=== PATIENT | male | born 1945 ===

== ENCOUNTER 2017-09-22 17:53 | Inpatient (IN) | payer MEDICARE, OTHER ==
[2017-09-22 17:54] VITALS: BMI 27.7
--- NOTE | 2017-09-22 18:31 | ED PDOC ---
Arrival/HPI - General Chief Complaint: Medical Clearance Time Seen by Provider: 09/22/17 17:59 Historian: Patient - History of Present Illness Narrative History of Present Illness (Text): 09/22/17 18:06 A 72 year old male, whose past medical history includes hypertension, CAD, CABG , CVA with left hemiparisis, presents to the emergency department via EMS after being sent in by PMD for multiple falls, left sided back, hip, and lower quadrant pain. The patient also notes that he has not had a bowel movement in 2 weeks and has a new urinary incontinence onset. The patient reports he has had 5 falls, including 2 falls within the last 10-12 days. He denies loss of consciousness, headaches, dizziness, fever, or any other complaints at this time. The patient admits to living alone and uses a cane when walking. PMD: Dr. Ramos Neuro: Dr. Agrawal GI: Dr. Collins Time/Duration: > week (10-12 days) Symptom Course: Unchanged Activities at Onset: Rest, Light Context: Home Past Medical History - Provider Review Nursing Documentation Reviewed: Yes - Tetanus Immunization Tetanus Immunization: Unknown - Cardiac Hx Cardiac Disorders: Yes Hx Hypertension: Yes - Pulmonary Hx Respiratory Disorders: Yes Other/Comment: H/O OF SMOKING CIGARETTES - Neurological HX Cerebrovascular Accident: Yes - HEENT Hx HEENT Disorder: Yes (pt uses reading glass) Hx Glaucoma: Yes - Integumentary Other/Comment: POST FALL SKIN ABRASION TO RIGHT UPPER INNER LATERAL .01-11-16 - Musculoskeletal/Rheumatological Hx Musculoskeletal Disorders: Yes (LUMBAR RADICULOPATHY) Hx Falls: Yes (RECENT 01-11-16) Hx Unsteady Gait: Yes (CANE) - Gastrointestinal Hx Gastroesophageal Reflux: Yes - Genitourinary/Gynecological Hx Genitourinary Disorders: Yes Hx Incontinence: Yes - Psychiatric Hx Psychophysiologic Disorder: Yes Hx Anxiety: Yes Hx Depression: Yes Hx Emotional Abuse: No Hx Physical Abuse: No Hx Substance Use: No Other/Comment: INSOMNIA - Surgical History Hx Appendectomy: Yes Hx Open Heart Surgery: Yes Other/Comment: OPN HEART SURGERY,HERNIA REPAIR X 2 - Anesthesia Hx Anesthesia: Yes Hx Anesthesia Reactions: No Hx Malignant Hyperthermia: No - Suicidal Assessment Feels Threatened In Home Enviroment: No Family/Social History - Physician Review Nursing Documentation Reviewed: Yes Family/Social History: No Known Family HX Smoking Status: Former Smoker Hx Alcohol Use: No Hx Substance Use: No Hx Substance Use Treatment: No Allergies/Home Meds Allergies/Adverse Reactions: Allergies No Known Allergies Allergy (Verified 01/16/16 21:02) Home Medications: Home Meds Medication Instructions Recorded Confirmed Polyethylene Glycol 3350 [Miralax] 17 gm PO HS 01/16/16 09/22/17 Review of Systems - Physician Review All systems were reviewed & negative as marked: Yes - Review of Systems Constitutional: absent: Fevers Respiratory: absent: SOB Gastrointestinal: Abdominal Pain (left lower quadrant ), Constipation (2 weeks) Genitourinary Male: Urinary Output Changes. absent: Dysuria Musculoskeletal: Back Pain (left lower back pain ), Other (left hip pain ) Neurological: Gait Changes. absent: Headache, Dizziness Physical Exam Vital Signs Reviewed: Yes Vital Signs Temp Pulse Resp BP Pulse Ox 09/22/17 18:09 97.7 F 81 18 121/60 82 L Temperature: Afebrile Blood Pressure: Normal Pulse: Regular Respiratory Rate: Normal Appearance: Positive for: Non-Toxic Pain Distress: None Mental Status: Positive for: Alert and Oriented X 3 - Systems Exam Head: Present: Atraumatic, Normocephalic Pupils: Present: PERRL Extroacular Muscles: Present: EOMI Conjunctiva: Present: Normal Mouth: Present: Moist Mucous Membranes Pharnyx: Present: Normal. No: ERYTHEMA, EXUDATE Neck: Present: Normal Range of Motion Respiratory/Chest: Present: Clear to Auscultation, Good Air Exchange. No: Respiratory Distress, Accessory Muscle Use Cardiovascular: Present: Regular Rate and Rhythm, Normal S1, S2. No: Murmurs Abdomen: Present: Normal Bowel Sounds. No: Tenderness, Distention, Peritoneal Signs Back: Present: CVA Tenderness (tender to palpation on left cva area) Upper Extremity: Present: Normal Inspection. No: Cyanosis, Edema Lower Extremity: Present: Tenderness (tenderness to the left lateral aspect of the hip ) Neurological: Present: GCS=15, CN II-XII Intact, Other (left hemiparesis). No: Speech Normal (slurred speech at baseline ), Motor Func Grossly Intact Skin: Present: Warm, Dry, Normal Color. No: Rashes Psychiatric: Present: Alert, Oriented x 3 Medical Decision Making ED Course and Treatment: 09/22/17 18:33 Impression: A 72 year old male with left lower back pain, hip pain, and left lower quadrant pain. Differential Diagnosis included but are not limited to: constipation vs. pyelonephritis vs. renal stone vs diverticulitis Plan: -- EKG -- Chest x-ray -- Abd & Pelvis CT -- Brain CT -- Labs -- Urinary straight catheter -- Radiology: Left hip -- Urinalysis -- Reassess and disposition Progress Notes: 09/22/17 21:29 Patient with noted history; labs showing anemia and urinary tract infection. Patient will need ivf and iv antibiotics. CT a/p showing constipation. Will give magnesium citrate and lactulose. Given multiple falls and h/o cva, the patient will need neuro eval. CT brain with no acute findings. INR is supratherapeutic. Coumadin will be held. Patient will need rehab or potential NH placement. Case discussed with Dr. Orlando Ramos for admission to his service. - Lab Interpretations Lab Results: 09/22/17 18:38 09/22/17 18:38 Lab Results 09/22/17 19:00: Urine Color Yellow, Urine Appearance Clear, Urine pH 6.0, Ur Specific [place] 1.020, Urine Protein Negative, Urine Glucose (UA) Negative, Urine Ketones Negative, Urine Blood Trace-intact H, Urine Nitrate Negative, Urine Bilirubin Negative, Urine Urobilinogen 4.0 H, Ur Leukocyte Esterase Moderate H, Urine RBC 2 - 5, Urine WBC 15 - 20, Ur Epithelial Cells 0 - 2, Amorphous Sediment Small, Urine Bacteria Many, Urine Other Uyeast 09/22/17 18:38: Sodium 138, Potassium 4.3, Chloride 104, Carbon Dioxide 26, Anion Gap 12, BUN 14, Creatinine 1.0, Est GFR ( Amer) > 60, Est GFR (Non- Af Amer) > 60, Random Glucose 121 H, Calcium 8.9, Magnesium 2.0, Total Bilirubin 0.8, AST 22, ALT 27, Alkaline Phosphatase 173 H, Lactate Dehydrogenase 512, Total Creatine Kinase 53, Troponin I < 0.01, NT-Pro-B Natriuret Pep 258, Total Protein 7.8, Albumin 3.4, Globulin 4.4, Albumin/ Globulin Ratio 0.8 L, Lipase 34 09/22/17 18:38: PT 63.6 H, INR 5.63 H*, APTT 54.5 H 09/22/17 18:38: WBC 5.1 D, RBC 3.95, Hgb 8.5 L, Hct 28.2 L, MCV 71.4 L, MCH 21.5 L, MCHC 30.1 L, RDW 21.8 H, Plt Count 194, MPV 9.0, Gran % 62.1, Lymph % ( Auto) 26.4, Lyman % (Auto) 7.7 H, Eos % (Auto) 3.4, Baso % (Auto) 0.4, Gran # 3.15, Lymph # 1.3, Lyman # 0.4, Eos # 0.2, Baso # 0.02 - RAD Interpretation Narrative RAD Interpretations (Text): 09/22/17 21:39 CXR: nad as read by me. Radiology Orders: 09/22/17 18:17 ABD & PELVIS W/O PO OR IV CONT [CT] Stat 09/22/17 18:18 Brain [HEAD W/O CONTRAST] [CT] Stat 09/22/17 18:24 CHEST TWO VIEWS (PA/LAT) [RAD] Stat 09/22/17 18:25 HIP MIN 2V W/ PELVIS LT [RAD] Stat - EKG Interpretation EKG Interpretation (Text): 09/22/17 21:39 NSR @ 81 with incomplete RBBB; QRS is 104 and OR is 208; other intervals are normal; left axis deviation with poor R wave progression. Interpreted by ED Physician: Yes Type: 12 lead EKG Comparison: Similar to previous EKG (01/11/16) - Medication Orders Current Medication Orders: Cefepime HCl (Maxipime 2gm) 2 gm in 100 mls @ 100 mls/hr IVPB STAT STA PRN Reason: Protocol Stop: 09/22/17 22:12 Sodium Chloride (Sodium Chloride 0.9%) 1,000 mls @ 100 mls/hr IV .Q10H STA Stop: 09/23/17 07:24 Lactulose (Enulose) 10 gm PO STAT STA Stop: 09/22/17 21:27 Magnesium Citrate (Citrate Of Mag) 150 ml PO ONCE STA Stop: 09/22/17 21:27 - Scribe Statement The provider has reviewed the documentation as recorded by the Peteribelham Lopez Provider Scribe Attestation: All medical record entries made by the Scribe were at my direction and personally dictated by me. I have reviewed the chart and agree that the record accurately reflects my personal performance of the history, physical exam, medical decision making, and the department course for this patient. I have also personally directed, reviewed, and agree with the discharge instructions and disposition. Disposition/Present on Arrival - Present on Arrival Any Indicators Present on Arrival: No History of DVT/PE: No History of Uncontrolled Diabetes: No Urinary Catheter: No History of Decub. Ulcer: No History Surgical Site Infection Following: None - Disposition Have Diagnosis and Disposition been Completed?: Yes Diagnosis: Multiple falls, Urinary tract infection, Constipation Disposition: HOSPITALIZED Disposition Time: 21:00 Patient Plan: Admission Condition: FAIR Referrals: Kiko Ramos MD [Primary Care Provider] - Follow up with primary Forms: Kozio (Belarusian)
[2017-09-22 19:04] LABS: BASO # 0.02 K/mm3 (0.0-2.0); BASO % 0.4 % (0.0-3.0); EOS # 0.2 (0.0-0.7); EOS % 3.4 % (1.5-5.0); GRAN # 3.15 (1.4-6.5); GRAN % 62.1 % (50.0-68.0); HEMATOCRIT 28.2 % (42.0-52.0); LYMPH # 1.3 (1.2-3.4); LYMPH % 26.4 % (22.0-35.0); MEAN CELL VOLUME 71.4 fl (80.0-105.0); MEAN CORPUSCULAR HEMOGLOBIN 21.5 pg (25.0-35.0); MEAN CORPUSCULAR HGB CONC 30.1 g/dl (31.0-37.0); MONO # 0.4 (0.1-0.6); MONO % 7.7 % (1.0-6.0); RED CELL DISTRIBUTION WIDTH 21.8 % (11.5-14.5); WHITE BLOOD COUNT 5.1 10^3/ul (4.5-11.0)
[2017-09-22 19:15] LABS: URINE BILIRUBIN NEGATIVE (NEGATIVE); URINE BLOOD TRACE-INTACT (NEGATIVE); URINE GLUCOSE (UA) NEGATIVE (NEGATIVE); URINE KETONE NEGATIVE (NEGATIVE); URINE LEUKOCYTE ESTERASE MODERATE Leu/uL (NEGATIVE); URINE PROTEIN NEGATIVE mg/dL (<30 mg/dL)
[2017-09-22 19:16] LABS: ALB/GLOB RATIO 0.8 (1.1-1.8); ALKALINE PHOSPHATASE 173 U/L (38-126); ALT/SGPT 27 U/L (7-56); AST/SGOT 22 U/L (17-59); BILIRUBIN,TOTAL 0.8 mg/dL (0.2-1.3); BLOOD UREA NITROGEN 14 mg/dL (7-21); CALCIUM 8.9 mg/dL (8.4-10.5); CARBON DIOXIDE 26 mmol/L (21-33); CHLORIDE 104 mmol/L (98-107); GFR AFRICAN-AMERICAN > 60; GLUCOSE,RANDOM 121 mg/dL (70-110); LIPASE 34 U/L (23-300); POTASSIUM 4.3 mmol/L (3.6-5.0); SODIUM 138 mmol/L (132-148); TOTAL PROTEIN 7.8 g/dL (5.8-8.3)
[2017-09-22 19:26] LABS: TROPONIN I < 0.01 ng/mL
[2017-09-22 19:27] LABS: URINE COLOR YELLOW (YELLOW)
[2017-09-22 19:28] LABS: URINE APPEARANCE CLEAR (CLEAR)
[2017-09-22 19:29] LABS: URINE AMORPHOUS SEDIMENT SMALL; URINE BACTERIA MANY (NEG); URINE EPITHELIAL CELLS 0 - 2 /hpf (0-5); URINE WBC 15 - 20 /hpf (0-6)
[2017-09-22 19:41] LABS: INR 5.63 (0.93-1.08); PARTIAL THROMBOPLASTIN TIME 54.5 Seconds (25.1-36.5)
--- NOTE | 2017-09-22 19:43 | CARD ---
APPROVED REPORT EKG Measurement Heart [id number] <Conclusion> Normal sinus rhythm Left axis deviation Incomplete right bundle branch block Anterolateral infarct, age undetermined Abnormal ECG
--- NOTE | 2017-09-22 20:39 | CT ---
EXAM: CT Head Without Intravenous Contrast CLINICAL HISTORY: 72 years old, male; Pain; Headache; Headache not specified; Additional info: H/o CVA; Multiple falls; On coumadin TECHNIQUE: Axial computed tomography images of the head/brain without intravenous contrast. All CT scans at this facility use one or more dose reduction techniques, viz.: automated exposure control; ma/kV adjustment per patient size (including targeted exams where dose is matched to indication; i.e. head); or iterative reconstruction technique. COMPARISON: CT - HEAD W/O CONTRAST 2016-01-11 11:13 FINDINGS: Brain: No acute intracranial hemorrhage. Decreased attenuation is identified within the right temporo-occipital lobe, as well as within the left posterior frontal white matter, consistent with prior cerebral infarctions. These are unchanged. Otherwise, age-appropriate periventricular white matter disease. No edema. Ventricles: Extra vacuo dilatation of the posterior horn of the right lateral ventricle. Otherwise, age-appropriate ventriculomegaly. Bones: No acute displaced fracture. Sinuses: Unremarkable as visualized. No acute sinusitis. Mastoid air cells: Unremarkable as visualized. No mastoid effusion. IMPRESSION: Stable CT examination of the head, without acute intracranial hemorrhage, or suspicious mass effect.
--- NOTE | 2017-09-22 20:51 | CT ---
EXAM: CT Abdomen and Pelvis Without Intravenous Contrast CLINICAL HISTORY: 72 years old, male; Pain; Abdominal pain; Acute; Additional info: L flank pain TECHNIQUE: Axial computed tomography images of the abdomen and pelvis without intravenous contrast. All CT scans at this facility use one or more dose reduction techniques, viz.: automated exposure control; ma/kV adjustment per patient size (including targeted exams where dose is matched to indication; i.e. head); or iterative reconstruction technique. COMPARISON: CT - ABD PELVIS W/O PO OR IV CONT 2016-01-11 11:16 FINDINGS: Lower thorax: Small bilateral pleural effusions, with adjacent compressive atelectasis. Persistent cardiomegaly. Small hiatal hernia. ABDOMEN: Liver: Fatty infiltration of the liver. Gallbladder and bile ducts: Multiple stones within the gallbladder, which is otherwise unremarkable. No intra-extrahepatic biliary ductal dilation. Pancreas: Limited evaluation secondary to the lack of intravenous contrast. Spleen: No acute findings. Adrenals: No acute findings. Kidneys and ureters: No obstructing stones. No hydronephrosis. PELVIS: Bladder: No acute findings. Reproductive: No acute findings. Appendix: The appendix is not definitively visualized, however no pericecal inflammatory change is identified to suggest the presence of acute appendicitis. ABDOMEN and PELVIS: Stomach and bowel: Aerated stool within the rectum, extending to the level of the descending colon with mural rectal thickening. Peritoneum: No acute findings. Lymph nodes: Limited evaluation without intravenous contrast. Vasculature: No aortic aneurysm. Calcified atherosclerotic disease. Bones: No acute fracture. IMPRESSION: No obstructive uropathy. Small bilateral pleural effusions with adjacent compressive atelectasis. Cholelithiasis. Findings suggesting fecal impaction with resulting constipation, as detailed above.
[2017-09-22] MEDS ORDERED: Cefepime IV 2 gm in NS 2 GM/100 ML BAG IVPB STA (21:13)
[2017-09-22] MEDS ORDERED: Sodium Chloride 0.9% 1,000 ML IV STA (21:25)
[2017-09-22] MEDS ORDERED: Magnesium Citrate Oral SOL (300 ml) PO STA (21:26)
--- NOTE | 2017-09-23 09:57 | RAD ---
PROCEDURE: HISTORY: L hip pain COMPARISON: None TECHNIQUE: AP view of the pelvis and applicable frog leg views obtained. Size FINDINGS: Generalized osteopenia. Inferior L4-5 and L5-S1 facet hypertrophic arthrosis. Bilateral superolateral hip joint space narrowing with mild superolateral acetabular spurring. Minimal inferomedial bilateral acetabular femoral spurring. Loss of the normal concavity to the left superior femoral head neck junction here with tiny left-sided cortical "Bump" here. Findings can be seen with femoral acetabular impingement in addition to inferred concomitant background osteoarthrosis IMPRESSION: No fracture or dislocation. Osteoarthrosis. Possible femoral acetabular impingement
--- NOTE | 2017-09-23 09:58 | RAD ---
HISTORY: abd pain, dizzy COMPARISON: 01/11/2016 TECHNIQUE: Chest PA and lateral FINDINGS: LUNGS: Trace discoid atelectasis and scarring left lateral lung base probably presents previously - currently more conspicuous. No interval consolidation. PLEURA: No significant pleural effusion identified. No pneumothorax apparent. CARDIOVASCULAR: Mild cardiomegaly. Midline sternotomy and coronary artery bypass surgery. OSSEOUS STRUCTURES: Left shoulder arthrosis O persists right shoulder not have visualized. VISUALIZED UPPER ABDOMEN: Normal. OTHER FINDINGS: None. IMPRESSION: No interval pathology.
[2017-09-23] MEDS: Cefepime 1gm in NS 100ml 1 GM/100 ML BAG IVPB SCH ×2 (10:17→21:37)
--- NOTE | 2017-09-23 10:45 | HP ---
CHIEF COMPLAINT: Generalized weakness. HISTORY OF PRESENT ILLNESS: This is a 72-year-old man I have known for many years who presented to the office with his branch credit counselor. He reported 5 falls at home and reports over the past few days has generalized weakness and no bowel movement in reported 2 weeks'. He is on Coumadin because of his CVAs, and his fingerstick INR was markedly elevated at 5.5 making him suspicious of infection. I tried my best to convince the patient to be admitted. He wanted to come tomorrow afternoon instead. But upon leaving the office it was obvious to all of us how weak he was, unable to walk down the bah and so my last patient of the day added on because of what was thought to be relatively simple complaint turned out to require the ambulance to come to the office and bring him to the emergency room. In the ER, he was evaluated, found to be clinically dry with rather severe urinary tract infection and admitted. PAST MEDICAL HISTORY: Significant for hypertension and coronary artery disease, atherosclerotic cerebrovascular disease and prior strokes. Past history is negative for diabetes, cholesterol, tuberculosis, asthma, seizures, gout, emphysema, or cancer. PAST SURGICAL HISTORY: He had coronary artery bypass graft in 1994, cardiac cath and stent placement in 2007. He had a recurrent hernia repair in the right inguinal area in 1991, appendectomy in 1989. He had multiple strokes in the past. When I first met him several years ago, he reported that he had had 7 strokes in the past in the right occipital and left posterior frontal area. His most recent CVA was earlier last year of December 2015. His only other hospitalizations at the time I have known him was in 2014 for headache and 2011 because of abdominal pain and splenic infarct. There is question of AFib in the past, although this is uncertain, however, with the multiple strokes and splenic infarct, we are most suspicious of this and therefore he continues on Coumadin. ALLERGIES: HE HAS NO KNOWN ALLERGIES. SOCIAL HISTORY: Does not smoke, but has positive history, does not drink alcohol. Drinks 1 cup of coffee a day. He had a colonoscopy and endoscopy in April 2011. He last say an eye doctor in [place], [place]. He had a stress test in 2010 [address] Zamora and Fede. He gets the flu shot yearly. His last Pneumovax vaccine was in 2010. He is the oldest of four siblings, and he is with 5 children. His internal medicine hospitalist is Dr. Mistry. His certified optician is Dr. King. His neurologist is Dr. Agrawal. PHYSICAL EXAMINATION GENERAL: Patient is somewhat disheveled, lethargic, sick appearing, but not in pain or distress. VITAL SIGNS: Blood pressure in the office was 110/60. HEENT: Head and neck showed temporalis wasting, unshaven. Mucous membranes were bit dry. NECK: Supple without masses. No JVD. No bruits. Normal carotid upstroke. HEART: Regular, not tachycardic. ABDOMEN: Thin and soft. Abdomen was nontender. CHEST: Chest wall was nontender. EXTREMITIES: Thin with no edema. LABORATORY DATA: In the emergency room, white count was normal. H and H was low at 8.5 and 28. Chemistries were unremarkable. Nonfasting glucose was 121. Urine showed white cells, blood, and many bacteria. Culture was sent. IMPRESSION: 1. Lethargy. 2. Altered mental status. 3. History of cerebrovascular accident. 4. Urinary tract infection. 5. Clinically dry/dehydration with elevated urine specific gravity. 6. Atherosclerotic cerebrovascular disease with multiple cerebrovascular accidents in the past. 7. History of splenic infarct. 8. Questionable history of atrial fibrillation in the past. 9. Hypertension. 10. Coronary artery disease. 11. Long history of left chest and abdomen post stroke neuralgia pain. 12. Acute and chronic severe constipation. PLAN: Admit to med-surg floor, IV fluids, IV antibiotics, infectious disease consultation, neurology consultation, GI consultation. We will follow closely. Kiko Ramos MD MTDChucho
--- NOTE | 2017-09-23 11:07 | CP.PCM.CON ---
History of Present Illness - History of Present Illness History of Present Illness: 72 year old male with PMH of CAD S/P CABG, CVA with left sided hemiparesis, HTN , lumbar radiculopathy, GERD, S/P hernia repair was brought in to [facility] because of multiple falls that have been happening over a few months, and a couple of falls in the past 2 weeks. He is also complaining of constipation and has not moved his bowels in the past 2 weeks, as well as having urinary incontinence. He has no fever or chills, no headache or dizziness , no chest pain, no SOB, no cough or colds, no abdominal pain. Urinalysis is showing some pyuria and Infectious diseases consult is requested to further evaluate and manage. Review of Systems - Review of Systems All systems: reviewed and no additional remarkable complaints except (as per HPI ) Past Patient History - Tetanus Immunizations Tetanus Immunization: Unknown - Past Medical History & Family History Past Medical History?: Yes - Past Social History Smoking Status: Former Smoker - CARDIAC Hx Cardiac Disorders: Yes Hx Hypertension: Yes - PULMONARY Hx Respiratory Disorders: Yes Other/Comment: H/O OF SMOKING CIGARETTES - NEUROLOGICAL HX Cerebrovascular Accident: Yes - HEENT Hx HEENT Problems: Yes (pt uses reading glass) Hx Glaucoma: Yes - INTEGUMENTARY Other/Comment: POST FALL SKIN ABRASION TO RIGHT UPPER INNER LATERAL .01-11-16 - MUSCULOSKELETAL/RHEUMATOLOGICAL Hx Musculoskeletal Disorders: Yes (LUMBAR RADICULOPATHY) Hx Falls: Yes (RECENT 01-11-16) Hx Unsteady Gait: Yes (CANE) - GASTROINTESTINAL Hx Gastroesophageal Reflux: Yes - GENITOURINARY/GYNECOLOGICAL Hx Genitourinary Disorders: Yes Hx Incontinence: Yes - PSYCHIATRIC Hx Psychophysiologic Disorder: Yes Hx Anxiety: Yes Hx Depression: Yes Hx Emotional Abuse: No Hx Physical Abuse: No Hx Substance Use: No Other/Comment: INSOMNIA - SURGICAL HISTORY Hx Appendectomy: Yes Hx Open Heart Surgery: Yes Other/Comment: OPN HEART SURGERY,HERNIA REPAIR X 2 - ANESTHESIA Hx Anesthesia: Yes Hx Anesthesia Reactions: No Hx Malignant Hyperthermia: No Meds Allergies/Adverse Reactions: Allergies Allergy/AdvReac Type Severity Reaction Status Date / Time No Known Allergies Allergy Verified 01/16/16 21:02 - Medications Medications: Current Medications Sodium Chloride (Sodium Chloride 0.9%) 1,000 mls @ 100 mls/hr IV .Q10H STA Stop: 09/23/17 07:24 Last Admin: 09/22/17 21:42 Dose: 100 mls/hr Physical Exam - Constitutional Appears: Non-toxic, Chronically Ill - Head Exam Head Exam: NORMAL INSPECTION - Respiratory Exam Respiratory Exam: Decreased Breath Sounds - Cardiovascular Exam Cardiovascular Exam: +S1, +S2 - GI/Abdominal Exam GI & Abdominal Exam: Soft. absent: Tenderness Results - Vital Signs Recent Vital Signs: Last Vital Signs Temp 99.4 F 09/22/17 22:05 Pulse 84 09/22/17 22:05 Resp 18 09/22/17 22:05 BP 107/55 L 09/22/17 22:05 Pulse Ox 95 09/22/17 22:05 - Labs Result Diagrams: 09/22/17 18:38 09/22/17 18:38 Assessment & Plan - Assessment and Plan (Free Text) Plan: Assessment R/O urinary tract infection in this patient with urinary incontinence CAD S/P CABG CVA with left sided hemiparesis HTN lumbar radiculopathy GERD S/P hernia repair Plan Started patient on Cefepime pending blood, urine cx awaiting Neuro evaluation regarding multiple falls and urinary incontinence will monitor clinically
--- NOTE | 2017-09-23 12:19 | CP.PCM.CON ---
<Estephania Smith - Last Filed: 09/23/17 13:09> History of Present Illness - History of Present Illness History of Present Illness: Seen and examined at earlier this a.m., the chart was reviewed. Request for GI consult is for abdominal pain/constipation. HPI: This is a 72-year-old male with a past medical history atrial fibrillation on Coumadin, chronic constipation, coronary artery disease s/p CABG, CVA with left hemiparesis sent to the emergency by PMD for history of falls 2 within the past 2 week. The patient denies loss of consciousness, head injury, nausea , or vomiting. The patient reports not having a BM for 2 weeks, he did have abdominal pain to left upper quadrant which is chronic but also had discomfort in lower abdominal area. On admission he had a CT scan of abdomen and pelvis and was found to have severe constipation, cholelithiasis, bilateral pleural effusion. He received last night magnesium citrate and reported to have a large bowel movement earlier this morning. No reports of melena or bright red blood per rectum. The patient reports improvement of lower abdominal pain, endorses poor appetite. No dysphagia. His most recent EGD and colon were in April found to have colon polyp, diverticulosis, and redundant colon. On endoscopy he was found ot have mild gastritis. Past medical history: Atrial fibrillation on Coumadin, hypertension, CAD, CABG, CVA with left hemiparesis, colon polyps, chronic constipation, peptic ulcer disease, diverticulosis Surgical history: Appendectomy, hernia repair Family history: Noncontributory Allergies: No known drug allergies Social history: Former smoker, denies EtOH or drugs Medications: MAR reviewed, patient on Coumadin at home ROS: Systems reviewed with the positive findings, see HPI CT scan head, no acute findings, no infarct or hemorrhage HIP XRAY: no fracture reported. Past Patient History - Tetanus Immunizations Tetanus Immunization: Unknown - Past Medical History & Family History Past Medical History?: Yes - Past Social History Smoking Status: Former Smoker - CARDIAC Hx Cardiac Disorders: Yes Hx Hypertension: Yes - PULMONARY Hx Respiratory Disorders: Yes Other/Comment: H/O OF SMOKING CIGARETTES - NEUROLOGICAL HX Cerebrovascular Accident: Yes - HEENT Hx HEENT Problems: Yes (pt uses reading glass) Hx Glaucoma: Yes - INTEGUMENTARY Other/Comment: POST FALL SKIN ABRASION TO RIGHT UPPER INNER LATERAL .01-11-16 - MUSCULOSKELETAL/RHEUMATOLOGICAL Hx Musculoskeletal Disorders: Yes (LUMBAR RADICULOPATHY) Hx Falls: Yes (RECENT 01-11-16) Hx Unsteady Gait: Yes (CANE) - GASTROINTESTINAL Hx Gastroesophageal Reflux: Yes - GENITOURINARY/GYNECOLOGICAL Hx Genitourinary Disorders: Yes Hx Incontinence: Yes - PSYCHIATRIC Hx Psychophysiologic Disorder: Yes Hx Anxiety: Yes Hx Depression: Yes Hx Emotional Abuse: No Hx Physical Abuse: No Hx Substance Use: No Other/Comment: INSOMNIA - SURGICAL HISTORY Hx Appendectomy: Yes Hx Open Heart Surgery: Yes Other/Comment: OPN HEART SURGERY,HERNIA REPAIR X 2 - ANESTHESIA Hx Anesthesia: Yes Hx Anesthesia Reactions: No Hx Malignant Hyperthermia: No Meds Allergies/Adverse Reactions: Allergies Allergy/AdvReac Type Severity Reaction Status Date / Time No Known Allergies Allergy Verified 01/16/16 21:02 - Medications Medications: Current Medications Cefepime HCl (Maxipime 1gm) 1 gm in 100 mls @ 100 mls/hr IVPB Q12 [facility] PRN Reason: Protocol Last Admin: 09/23/17 10:17 Dose: 100 mls/hr Polyethylene Glycol (Miralax) 17 gm PO Q8H [facility] Stop: 09/24/17 06:01 Physical Exam - Constitutional Appears: No Acute Distress - Head Exam Head Exam: NORMOCEPHALIC - Eye Exam Eye Exam: Normal appearance. absent: Scleral icterus - ENT Exam ENT Exam: Mucous Membranes Moist - Neck Exam Neck exam: Positive for: Normal Inspection - Respiratory Exam Respiratory Exam: Decreased Breath Sounds, NORMAL BREATHING PATTERN. absent: Respiratory Distress - Cardiovascular Exam Cardiovascular Exam: +S1, +S2 - GI/Abdominal Exam GI & Abdominal Exam: Hyperactive Bowel Sounds, Soft, Tenderness (LUQ). absent: Distended, Guarding, Rebound - Extremities Exam Extremities exam: Positive for: pedal pulses present. Negative for: calf tenderness - Neurological Exam Neurological exam: Alert, Oriented x3 Additional comments: LEFT sided weakness - Skin Skin Exam: Dry, Warm Results - Vital Signs Recent Vital Signs: Last Vital Signs Temp 98.8 F 09/23/17 08:18 Pulse 79 09/23/17 08:18 Resp 18 09/23/17 08:18 BP 120/64 09/23/17 08:18 Pulse Ox 97 09/23/17 08:18 - Labs Result Diagrams: 09/22/17 18:38 09/22/17 18:38 Assessment & Plan - Assessment and Plan (Free Text) Assessment: Assessment: Status post fall Severe constipation, history of chronic UTI History of atrial fibrillation on Coumadin History of diverticulosis CAD History of CVA with left-sided weakness PLAN: give Miralax Q8H for three doses then will place on Miralax BID diet as tolerated on Iv antibiotics urine CS, pending result abdominal US, elevated alkaline phos, ?GB stone on ct scan neurology evaluation as per ID Thank you for this consult and for allowing us to participate in your patient care, further recommendation based on clinical course. Seen and discussed w/ Dr. King. <Trev King V - Last Filed: 09/23/17 22:21> Meds - Medications Medications: Current Medications Amitriptyline HCl (Elavil) 75 mg PO HS [facility] Last Admin: 09/23/17 21:41 Dose: 75 mg Aspirin (Aspirin Chewable) 81 mg PO DAILY [facility] Carvedilol (Coreg) 3.125 mg PO BID [facility] Last Admin: 09/23/17 17:21 Dose: 3.125 mg Gabapentin (Neurontin) 300 mg PO TID [facility] PRN Reason: Protocol Last Admin: 09/23/17 17:20 Dose: 300 mg Cefepime HCl (Maxipime 1gm) 1 gm in 100 mls @ 100 mls/hr IVPB Q12 [place] PRN Reason: Protocol Last Admin: 09/23/17 21:37 Dose: 100 mls/hr Lisinopril (Zestril) 2.5 mg PO DAILY [facility] Last Admin: 09/23/17 13:26 Dose: 2.5 mg Pantoprazole Sodium (Protonix Ec Tab) 20 mg PO 0600 [facility] Polyethylene Glycol (Miralax) 17 gm PO Q8H [facility] Stop: 09/24/17 06:01 Last Admin: 09/23/17 21:43 Dose: 17 gm Sertraline HCl (Zoloft) 50 mg PO DAILY [facility] Tamsulosin HCl (Flomax) 0.4 mg PO DAILY [facility] Last Admin: 09/23/17 13:26 Dose: 0.4 mg Results - Vital Signs Recent Vital Signs: Last Vital Signs Temp 97.2 F L 09/23/17 16:00 Pulse 80 09/23/17 16:00 Resp 20 09/23/17 16:00 BP 124/65 09/23/17 17:21 Pulse Ox 95 09/23/17 16:00 - Labs Result Diagrams: 09/23/17 12:50 09/23/17 12:50 Labs: Laboratory Results - last 24 hr 09/23/17 09/23/17 09/23/17 12:50 12:50 12:50 WBC 4.7 RBC 3.61 Hgb 7.8 L Hct 25.8 L MCV 71.5 L MCH 21.6 L MCHC 30.2 L RDW 21.7 H Plt Count 171 MPV 8.6 PT 49.6 H INR 4.38 H* Sodium 144 Potassium 3.9 Chloride 107 Carbon Dioxide 32 Anion Gap 9 L BUN 12 Creatinine 0.9 Est GFR ( Amer) > 60 Est GFR (Non-Af Amer) > 60 Random Glucose 94 Calcium 8.3 L Total Bilirubin 0.6 AST 32 ALT 39 Alkaline Phosphatase 154 H Total Protein 7.1 Albumin 3.1 Globulin 4.0 Albumin/Globulin Ratio 0.8 L Blood Type Antibody Screen Crossmatch BBK History Checked 09/23/17 20:12 WBC RBC Hgb Hct MCV MCH MCHC RDW Plt Count MPV PT INR Sodium Potassium Chloride Carbon Dioxide Anion Gap BUN Creatinine Est GFR ( Amer) Est GFR (Non-Af Amer) Random Glucose Calcium Total Bilirubin AST ALT Alkaline Phosphatase Total Protein Albumin Globulin Albumin/Globulin Ratio Blood Type A POSITIVE Antibody Screen Negative Crossmatch See Detail BBK History Checked No verified bt Attending/Attestation - Attestation I have personally seen and examined this patient.: Yes I have fully participated in the care of the patient.: Yes I have reviewed all pertinent clinical information: Yes Notes (Text): this is an addendum to the GI consultation report dictated by Estephania Smith APN. On examination patient had a tenderness elicited abdomen. Patient has a history of chronic abdominal discomfort on the left side. Previous endoscopy reports reviewed CT scan was reviewed Will start the patient on MiraLAX 3 times a day until he moves his bowels Coagulopathy. History of paroxysmal A. fib on Coumadin. History of status post CVA 09/23/17 22:20
--- NOTE | 2017-09-23 12:56 | CON ---
HISTORY OF PRESENT ILLNESS: This is a 72-year-old male with past medical history of coronary artery disease and stroke with left hemiparesis, hypertension and GERD, came to medical center with multiple falls at home over a month and also complaining of constipation and having urinary incontinence. Called to evaluate the patient. PAST MEDICAL HISTORY: Coronary artery disease, status post CABG; CVA with left hemiparesis and low back pain. REVIEW OF SYSTEMS: Ten-point review of systems was negative except left-sided weakness secondary to stroke. ALLERGIES: NO KNOWN DRUG ALLERGY. PHYSICAL EXAMINATION: VITAL SIGNS: Blood pressure 107/55. HEENT: Normocephalic, atraumatic. NECK: Supple. NEUROLOGIC: Awake, oriented to self, confused and follows simple commands. Cranial nerves II through XII were tested. Pupils reactive. EOM intact. Spontaneous movement of the right side noted. Left side, left hemiparesis from a previous stroke and also altered mental status and UTI. LABORATORY DATA: Workup in progress. Labs: WBC 5.1, hemoglobin of 8.5, hematocrit 28.2, platelet 194. Sodium 138, potassium 4.3, chloride 104, CO2 of 26, glucose 121, BUN 14, creatinine 1. PLAN: Workup in progress. Continue present management and we will order him for physical therapy. Jose Agrawal MD
[2017-09-23 13:10] LABS: HEMATOCRIT 25.8 % (42.0-52.0); MEAN CELL VOLUME 71.5 fl (80.0-105.0); MEAN CORPUSCULAR HEMOGLOBIN 21.6 pg (25.0-35.0); MEAN CORPUSCULAR HGB CONC 30.2 g/dl (31.0-37.0); MEAN PLATELET VOLUME 8.6 fl (7.0-11.0); RED CELL DISTRIBUTION WIDTH 21.7 % (11.5-14.5); WHITE BLOOD COUNT 4.7 10^3/ul (4.5-11.0)
[2017-09-23 13:21] LABS: BLOOD UREA NITROGEN 12 mg/dL (7-21)
[2017-09-23 13:22] LABS: ALB/GLOB RATIO 0.8 (1.1-1.8); ALKALINE PHOSPHATASE 154 U/L (38-126); ALT/SGPT 39 U/L (7-56); AST/SGOT 32 U/L (17-59); BILIRUBIN,TOTAL 0.6 mg/dL (0.2-1.3); CALCIUM 8.3 mg/dL (8.4-10.5); CARBON DIOXIDE 32 mmol/L (21-33); CHLORIDE 107 mmol/L (98-107); GFR AFRICAN-AMERICAN > 60; GLUCOSE,RANDOM 94 mg/dL (70-110); POTASSIUM 3.9 mmol/L (3.6-5.0); SODIUM 144 mmol/L (132-148); TOTAL PROTEIN 7.1 g/dL (5.8-8.3)
[2017-09-23] MEDS: POLYETHYLENE GLYCOL 3350 17 GM/Dose PACKET PO SCH ×2 (13:23→21:43)
[2017-09-23 13:29] LABS: INR 4.38 (0.93-1.08)
--- NOTE | 2017-09-23 20:15 | US ---
EXAM: US Abdomen Complete CLINICAL HISTORY: 72 years old, male; Abnormal findings; Abnormal lab test; Elevated liver enzymes; Additional info: Elevated lft TECHNIQUE: Real-time ultrasound of the abdomen (complete) with image documentation. COMPARISON: CT - ABD PELVIS W/O PO OR IV CONT 2017-09-22 19:46 FINDINGS: Liver: The liver is not enlarged measuring 14 cm in longitudinal dimension. Diffuse fatty infiltration is present. The portal vein is patent. No intrahepatic bile duct dilation. Gallbladder: Shadowing stones are identified within the gallbladder, which is otherwise unremarkable. No pericholecystic fluid or gallbladder wall thickening is detected. Common bile duct: No stones. No dilation, measuring 3.8 mm. Pancreas: Visualization of the pancreas is limited by overlying bowel gas. Right kidney: Unremarkable in echogenicity and size measuring 10.4 x 5.2 x 5.4 cm. No hydronephrosis. Left Kidney: Unremarkable in echogenicity and size measuring 11.7 x 4.8 x 5.9 cm. No hydronephrosis. Spleen: Unremarkable in echogenicity and increased in size measuring 13 cm in longitudinal dimension. Aorta: Unremarkable. Inferior vena cava: patent. IMPRESSION: Splenomegaly. Cholelithiasis, without sonographic evidence of cholecystitis. Fatty infiltration of the liver. Limited evaluation of the pancreas, secondary to overlying bowel gas. Otherwise, unremarkable sonographic evaluation of the abdomen, as detailed above.
[2017-09-24] MEDS: Pantoprazole 20 mg EC Tab PO SCH (05:18)
[2017-09-24] MEDS: POLYETHYLENE GLYCOL 3350 17 GM/Dose PACKET PO SCH ×2 (05:18→18:45)
[2017-09-24 06:25] LABS: HEMATOCRIT 29.5 % (42.0-52.0); MEAN CELL VOLUME 73.8 fl (80.0-105.0); MEAN CORPUSCULAR HEMOGLOBIN 23.5 pg (25.0-35.0); MEAN CORPUSCULAR HGB CONC 31.9 g/dl (31.0-37.0); MEAN PLATELET VOLUME 9.2 fl (7.0-11.0); RED CELL DISTRIBUTION WIDTH 21.6 % (11.5-14.5); WHITE BLOOD COUNT 4.2 10^3/ul (4.5-11.0)
[2017-09-24 06:39] LABS: INR 1.97 (0.93-1.08)
[2017-09-24 07:09] LABS: ALB/GLOB RATIO 0.8 (1.1-1.8); ALKALINE PHOSPHATASE 159 U/L (38-126); ALT/SGPT 42 U/L (7-56); AST/SGOT 31 U/L (17-59); BILIRUBIN,TOTAL 0.8 mg/dL (0.2-1.3); BLOOD UREA NITROGEN 10 mg/dL (7-21); CALCIUM 8.2 mg/dL (8.4-10.5); CARBON DIOXIDE 29 mmol/L (21-33); CHLORIDE 107 mmol/L (98-107); GFR AFRICAN-AMERICAN > 60; GLUCOSE,RANDOM 86 mg/dL (70-110); POTASSIUM 3.8 mmol/L (3.6-5.0); SODIUM 140 mmol/L (132-148); TOTAL PROTEIN 6.9 g/dL (5.8-8.3)
--- NOTE | 2017-09-24 09:07 | CP.PCM.PN ---
<Jaymie Lagunas - Last Filed: 09/24/17 12:25> Subjective - Date & Time of Evaluation Date of Evaluation: 09/24/17 Time of Evaluation: 09:05 - Subjective Subjective: PGY-2 Neurology progress note Patient seen and examined at bedside. No acute distress, he is sleeping comfortably. He does not have any complaints at this time. Objective - Vital Signs/Intake and Output Vital Signs (last 24 hours): Temp Pulse Resp BP Pulse Ox 98.8 F 68 18 128/70 97 09/24/17 08:05 09/24/17 08:05 09/24/17 08:05 09/24/17 08:05 09/24/17 08:05 Intake and Output: 09/24/17 09/24/17 06:59 18:59 Intake Total 1025 Output Total 2 Balance 1023 - Medications Medications: Current Medications Amitriptyline HCl (Elavil) 75 mg PO HS [facility] Last Admin: 09/23/17 21:41 Dose: 75 mg Aspirin (Aspirin Chewable) 81 mg PO DAILY [facility] Carvedilol (Coreg) 3.125 mg PO BID [facility] Last Admin: 09/23/17 17:21 Dose: 3.125 mg Gabapentin (Neurontin) 300 mg PO TID [facility] PRN Reason: Protocol Last Admin: 09/23/17 17:20 Dose: 300 mg Cefepime HCl (Maxipime 1gm) 1 gm in 100 mls @ 100 mls/hr IVPB Q12 [place] PRN Reason: Protocol Last Admin: 09/23/17 21:37 Dose: 100 mls/hr Lisinopril (Zestril) 2.5 mg PO DAILY [facility] Last Admin: 09/23/17 13:26 Dose: 2.5 mg Pantoprazole Sodium (Protonix Ec Tab) 20 mg PO 0600 [facility] Last Admin: 09/24/17 05:18 Dose: 20 mg Sertraline HCl (Zoloft) 50 mg PO DAILY [facility] Tamsulosin HCl (Flomax) 0.4 mg PO DAILY [facility] Last Admin: 09/23/17 13:26 Dose: 0.4 mg - Labs Labs: 09/24/17 05:20 09/24/17 05:20 PT 22.0 SECONDS (9.4-12.5) H 09/24/17 05:20 INR 1.97 (0.93-1.08) H 09/24/17 05:20 APTT 54.5 Seconds (25.1-36.5) H 09/22/17 18:38 - Constitutional Appears: No Acute Distress - Head Exam Head Exam: ATRAUMATIC, NORMAL INSPECTION, NORMOCEPHALIC - Eye Exam Eye Exam: EOMI, Normal appearance - Respiratory Exam Respiratory Exam: NORMAL BREATHING PATTERN. absent: Respiratory Distress - Neurological Exam Neurological Exam: Alert, Awake. absent: Oriented x3 Assessment and Plan - Assessment and Plan (Free Text) Assessment: 72 yo male with PMH of CAD s/p CABG, CVA with left hemiparesis, low back pain presented with frequent falls and urinary incontinence. 1. UTI 2. H/o CVA with left hemiparesis - CT head was unchanged - MRI of brain shows cystic encephalomalacia in right occipital lobe and right temporal lobe, frontal lobe and left basal ganglia, consistent with neurological deficiency - MRI of lumbar spine showed acute compression fracture of L1 - recommend neurosurgery evaluation - continue asa, plavix - PT/OT case reviewed and discussed with attending <Alfredo Agrawal - Last Filed: 09/24/17 16:13> Objective - Vital Signs/Intake and Output Vital Signs (last 24 hours): Temp Pulse Resp BP Pulse Ox 98.8 F 68 18 128/70 97 09/24/17 08:05 09/24/17 10:08 09/24/17 08:05 09/24/17 10:08 09/24/17 08:05 Intake and Output: 09/24/17 09/24/17 06:59 18:59 Intake Total 1025 Output Total 2 Balance 1023 - Medications Medications: Current Medications Amitriptyline HCl (Elavil) 75 mg PO HS [facility] Last Admin: 09/23/17 21:41 Dose: 75 mg Aspirin (Aspirin Chewable) 81 mg PO DAILY [facility] Last Admin: 09/24/17 10:07 Dose: 81 mg Carvedilol (Coreg) 3.125 mg PO BID [facility] Last Admin: 09/24/17 10:08 Dose: 3.125 mg Gabapentin (Neurontin) 300 mg PO TID [facility] PRN Reason: Protocol Last Admin: 09/24/17 16:00 Dose: 300 mg Cefepime HCl (Maxipime 1gm) 1 gm in 100 mls @ 100 mls/hr IVPB Q12 [facility] PRN Reason: Protocol Last Admin: 09/24/17 10:08 Dose: 100 mls/hr Lisinopril (Zestril) 2.5 mg PO DAILY [facility] Last Admin: 09/24/17 10:06 Dose: 2.5 mg Pantoprazole Sodium (Protonix Ec Tab) 20 mg PO 0600 [facility] Last Admin: 09/24/17 05:18 Dose: 20 mg Polyethylene Glycol (Miralax) 17 gm PO BID [facility] Sertraline HCl (Zoloft) 50 mg PO DAILY [facility] Last Admin: 09/24/17 10:07 Dose: 50 mg Tamsulosin HCl (Flomax) 0.4 mg PO DAILY [facility] Last Admin: 09/24/17 10:07 Dose: 0.4 mg - Labs Labs: 09/24/17 05:20 09/24/17 05:20 PT 22.0 SECONDS (9.4-12.5) H 09/24/17 05:20 INR 1.97 (0.93-1.08) H 09/24/17 05:20 APTT 54.5 Seconds (25.1-36.5) H 09/22/17 18:38 Attending/Attestation - Attestation I have personally seen and examined this patient.: Yes I have fully participated in the care of the patient.: Yes I have reviewed all pertinent clinical information, including history, physical exam and plan: Yes
[2017-09-24] MEDS: Cefepime 1gm in NS 100ml 1 GM/100 ML BAG IVPB SCH ×2 (10:08→21:17)
--- NOTE | 2017-09-24 10:17 | MRI ---
PROCEDURE: MRI BRAIN WITHOUT CONTRAST HISTORY: weakness COMPARISON: 01/13/2016 MRI TECHNIQUE: Multiplanar, multisequence MR images of the brain were obtained without intravenous contrast enhancement. FINDINGS: HEMORRHAGE: None DWI: No evidence of an acute or early subacute infarction. BRAIN PARENCHYMA: No mass effect or edema. There is cystic encephalomalacia in the right occipital lobe adjacent to the occipital and temporal horn of the right lateral ventricle. Encephalomalacia is also seen in the right temporal lobe and the left frontal lobe and left basal ganglia. There are no acute changes VENTRICLES: Unremarkable. No hydrocephalus. CRANIUM: Unremarkable. ORBITS: Grossly unremarkable. PARANASAL SINUSES/MASTOIDS: Clear VASCULAR SYSTEM: Skull base flow voids intact. OTHER FINDINGS: None. IMPRESSION: There is cystic encephalomalacia in the right occipital lobe adjacent to the occipital and temporal horn of the right lateral ventricle. Encephalomalacia is also seen in the right temporal lobe and the left frontal lobe and left basal ganglia. There are no acute changes
--- NOTE | 2017-09-24 10:28 | MRI ---
PROCEDURE: MR LUMBAR SPINE WITHOUT CONTRAST HISTORY: pain, falls, irinary incont COMPARISON: 11/05/2012 TECHNIQUE: Multiecho multiplanar sequences were performed through the lumbar spine without the use of intravenous contrast. FINDINGS: Normal lumbar lordosis. There is an acute compression fracture of the superior endplate of L1. There is a transverse fracture line that parallels the endplate. There is marrow edema indicating that the fractures acute or subacute Conus medullaris unremarkable at the level of L1 Paraspinal soft tissues are unremarkable. T12-L1: No disc herniation, spinal canal stenosis or neural foraminal narrowing. L1-2: No disc herniation, spinal canal stenosis or neural foraminal narrowing. L2-3: No disc herniation, spinal canal stenosis or neural foraminal narrowing. L3-4: There is a moderate size central disc herniation. This has slightly decreased in size. This indents the thecal sac. There is no evidence of direct nerve root compression L4-5: There is an asymmetric disc bulge extending to the left. There is no significant foraminal stenosis L5-S1: No disc herniation, spinal canal stenosis or neural foraminal narrowing. OTHER FINDINGS: None. IMPRESSION: There is an acute compression fracture of the superior endplate of L1. There is a transverse fracture line that parallels the endplate. There is marrow edema indicating that the fracture is acute or subacute
--- NOTE | 2017-09-24 12:15 | CP.PCM.PN ---
Subjective - Date & Time of Evaluation Date of Evaluation: 09/24/17 Time of Evaluation: 12:14 - Subjective Subjective: 72 y o male with mult med problems MRI Ll spine shows minimally compressed sup endplate FX L1 No intervention is required appropriate level of analgesics for any LBP Objective - Vital Signs/Intake and Output Vital Signs (last 24 hours): Temp Pulse Resp BP Pulse Ox 98.8 F 68 18 128/70 97 09/24/17 08:05 09/24/17 10:08 09/24/17 08:05 09/24/17 10:08 09/24/17 08:05 Intake and Output: 09/24/17 09/24/17 06:59 18:59 Intake Total 1025 Output Total 2 Balance 1023 - Medications Medications: Current Medications Amitriptyline HCl (Elavil) 75 mg PO HS [facility] Last Admin: 09/23/17 21:41 Dose: 75 mg Aspirin (Aspirin Chewable) 81 mg PO DAILY [facility] Last Admin: 09/24/17 10:07 Dose: 81 mg Carvedilol (Coreg) 3.125 mg PO BID [facility] Last Admin: 09/24/17 10:08 Dose: 3.125 mg Gabapentin (Neurontin) 300 mg PO TID [facility] PRN Reason: Protocol Last Admin: 09/24/17 10:07 Dose: 300 mg Cefepime HCl (Maxipime 1gm) 1 gm in 100 mls @ 100 mls/hr IVPB Q12 [facility] PRN Reason: Protocol Last Admin: 09/24/17 10:08 Dose: 100 mls/hr Lisinopril (Zestril) 2.5 mg PO DAILY [facility] Last Admin: 09/24/17 10:06 Dose: 2.5 mg Pantoprazole Sodium (Protonix Ec Tab) 20 mg PO 0600 [facility] Last Admin: 09/24/17 05:18 Dose: 20 mg Sertraline HCl (Zoloft) 50 mg PO DAILY [facility] Last Admin: 09/24/17 10:07 Dose: 50 mg Tamsulosin HCl (Flomax) 0.4 mg PO DAILY [facility] Last Admin: 09/24/17 10:07 Dose: 0.4 mg - Labs Labs: 09/24/17 05:20 09/24/17 05:20 PT 22.0 SECONDS (9.4-12.5) H 09/24/17 05:20 INR 1.97 (0.93-1.08) H 09/24/17 05:20 APTT 54.5 Seconds (25.1-36.5) H 09/22/17 18:38
--- NOTE | 2017-09-24 12:25 | CP.PCM.PN ---
Subjective - Date & Time of Evaluation Date of Evaluation: 09/24/17 Time of Evaluation: 10:45 - Subjective Subjective: Comfortable in bed, no fevers overnight, not in distress, no abdominal pain, still with back pain. Objective - Vital Signs/Intake and Output Vital Signs (last 24 hours): Temp Pulse Resp BP Pulse Ox 98.8 F 68 18 128/70 97 09/24/17 08:05 09/24/17 08:05 09/24/17 08:05 09/24/17 08:05 09/24/17 08:05 Intake and Output: 09/24/17 09/24/17 06:59 18:59 Intake Total 1025 Output Total 2 Balance 1023 - Medications Medications: Current Medications Amitriptyline HCl (Elavil) 75 mg PO HS [facility] Last Admin: 09/23/17 21:41 Dose: 75 mg Aspirin (Aspirin Chewable) 81 mg PO DAILY [facility] Carvedilol (Coreg) 3.125 mg PO BID [facility] Last Admin: 09/23/17 17:21 Dose: 3.125 mg Gabapentin (Neurontin) 300 mg PO TID [facility] PRN Reason: Protocol Last Admin: 09/23/17 17:20 Dose: 300 mg Cefepime HCl (Maxipime 1gm) 1 gm in 100 mls @ 100 mls/hr IVPB Q12 [facility] PRN Reason: Protocol Last Admin: 09/23/17 21:37 Dose: 100 mls/hr Lisinopril (Zestril) 2.5 mg PO DAILY [facility] Last Admin: 09/23/17 13:26 Dose: 2.5 mg Pantoprazole Sodium (Protonix Ec Tab) 20 mg PO 0600 [facility] Last Admin: 09/24/17 05:18 Dose: 20 mg Sertraline HCl (Zoloft) 50 mg PO DAILY [facility] Tamsulosin HCl (Flomax) 0.4 mg PO DAILY [facility] Last Admin: 09/23/17 13:26 Dose: 0.4 mg - Labs Labs: 09/24/17 05:20 09/24/17 05:20 PT 22.0 SECONDS (9.4-12.5) H 09/24/17 05:20 INR 1.97 (0.93-1.08) H 09/24/17 05:20 APTT 54.5 Seconds (25.1-36.5) H 09/22/17 18:38 - Constitutional Appears: Non-toxic, Chronically Ill - Head Exam Head Exam: NORMAL INSPECTION - ENT Exam ENT Exam: Mucous Membranes Moist - Neck Exam Neck Exam: absent: Meningismus - Respiratory Exam Respiratory Exam: Decreased Breath Sounds - Cardiovascular Exam Cardiovascular Exam: +S1, +S2 - GI/Abdominal Exam GI & Abdominal Exam: Soft. absent: Tenderness Assessment and Plan - Assessment and Plan (Free Text) Plan: Assessment urinary tract infection with gram negative bacilli in this patient with urinary incontinence CAD S/P CABG CVA with left sided hemiparesis HTN lumbar radiculopathy GERD S/P hernia repair Plan continue Cefepime day 2 pending final urine cx results; blood cx are negative follow up MRI brain and lumbar spine will continue to monitor clinically
--- NOTE | 2017-09-24 16:32 | CP.PCM.PN ---
<Estephania Smith - Last Filed: 09/24/17 16:19> Subjective - Date & Time of Evaluation Date of Evaluation: 09/24/17 Time of Evaluation: 10:25 - Subjective Subjective: S&E at bedside in am, patient reports that he had 4 BM but no record noted on I& O and Jaci SUÁREZ endorsed that no mention in evening, no reports of melena or BRBPR. Patient reports no N/V or abdominal pain. No acute overnight events reported. S/P 1 unit of PRBC. MRI brain: cystic encephalomalcia, no acute changes/MRI spine: compression fracture endplate L1. Objective - Vital Signs/Intake and Output Vital Signs (last 24 hours): Temp Pulse Resp BP Pulse Ox 98.8 F 68 18 128/70 97 09/24/17 08:05 09/24/17 10:08 09/24/17 08:05 09/24/17 10:08 09/24/17 08:05 Intake and Output: 09/24/17 09/24/17 06:59 18:59 Intake Total 1025 Output Total 2 Balance 1023 - Medications Medications: Current Medications Amitriptyline HCl (Elavil) 75 mg PO HS [facility] Last Admin: 09/23/17 21:41 Dose: 75 mg Aspirin (Aspirin Chewable) 81 mg PO DAILY [facility] Last Admin: 09/24/17 10:07 Dose: 81 mg Carvedilol (Coreg) 3.125 mg PO BID [facility] Last Admin: 09/24/17 10:08 Dose: 3.125 mg Gabapentin (Neurontin) 300 mg PO TID [facility] PRN Reason: Protocol Last Admin: 09/24/17 16:00 Dose: 300 mg Cefepime HCl (Maxipime 1gm) 1 gm in 100 mls @ 100 mls/hr IVPB Q12 [facility] PRN Reason: Protocol Last Admin: 09/24/17 10:08 Dose: 100 mls/hr Lisinopril (Zestril) 2.5 mg PO DAILY [facility] Last Admin: 09/24/17 10:06 Dose: 2.5 mg Pantoprazole Sodium (Protonix Ec Tab) 20 mg PO 0600 [facility] Last Admin: 09/24/17 05:18 Dose: 20 mg Polyethylene Glycol (Miralax) 17 gm PO BID [facility] Sertraline HCl (Zoloft) 50 mg PO DAILY [facility] Last Admin: 09/24/17 10:07 Dose: 50 mg Tamsulosin HCl (Flomax) 0.4 mg PO DAILY [facility] Last Admin: 09/24/17 10:07 Dose: 0.4 mg - Labs Labs: 09/24/17 05:20 09/24/17 05:20 PT 22.0 SECONDS (9.4-12.5) H 09/24/17 05:20 INR 1.97 (0.93-1.08) H 09/24/17 05:20 APTT 54.5 Seconds (25.1-36.5) H 09/22/17 18:38 - Constitutional Appears: No Acute Distress - Head Exam Head Exam: NORMOCEPHALIC - Eye Exam Eye Exam: Normal appearance. absent: Scleral icterus - ENT Exam ENT Exam: Mucous Membranes Moist - Neck Exam Neck Exam: Normal Inspection - Respiratory Exam Respiratory Exam: NORMAL BREATHING PATTERN. absent: Respiratory Distress - Cardiovascular Exam Cardiovascular Exam: +S1, +S2 - GI/Abdominal Exam GI & Abdominal Exam: Soft, Normal Bowel Sounds. absent: Guarding, Tenderness, Organomegaly, Rebound - Extremities Exam Extremities Exam: absent: Calf Tenderness - Neurological Exam Neurological Exam: Alert, Awake, Oriented x3 - Skin Skin Exam: Dry, Warm Assessment and Plan - Assessment and Plan (Free Text) Assessment: Assessment: Status post fall, s/p MRI spine: compression FX L1 Severe constipation, history of chronic constipation UTI History of atrial fibrillation on Coumadin History of diverticulosis CAD History of CVA with left-sided weakness PLAN: continue Miralax BID soft low residual diet on IV antibiotics neuro SX, no sx required at this time as per ID may consider EGD tomorrow depending upon clinical course, recheck PT/INR, pt off Coumadin. Seen and discussed w/ Dr. King. <Trev King V - Last Filed: 09/24/17 22:57> Objective - Vital Signs/Intake and Output Vital Signs (last 24 hours): Temp Pulse Resp BP Pulse Ox 98 F 64 19 114/65 96 09/24/17 16:00 09/24/17 18:44 09/24/17 16:00 09/24/17 18:44 09/24/17 16:00 Intake and Output: 09/24/17 09/25/17 18:59 06:59 Intake Total 300 Balance 300 - Medications Medications: Current Medications Amitriptyline HCl (Elavil) 75 mg PO HS [facility] Last Admin: 09/24/17 21:18 Dose: 75 mg Aspirin (Aspirin Chewable) 81 mg PO DAILY [facility] Last Admin: 09/24/17 10:07 Dose: 81 mg Carvedilol (Coreg) 3.125 mg PO BID [facility] Last Admin: 09/24/17 18:44 Dose: 3.125 mg Gabapentin (Neurontin) 300 mg PO TID [facility] PRN Reason: Protocol Last Admin: 09/24/17 18:44 Dose: 300 mg Cefepime HCl (Maxipime 1gm) 1 gm in 100 mls @ 100 mls/hr IVPB Q12 [facility] PRN Reason: Protocol Last Admin: 09/24/17 21:17 Dose: 100 mls/hr Lisinopril (Zestril) 2.5 mg PO DAILY [facility] Last Admin: 09/24/17 10:06 Dose: 2.5 mg Pantoprazole Sodium (Protonix Ec Tab) 20 mg PO 0600 [facility] Last Admin: 09/24/17 05:18 Dose: 20 mg Polyethylene Glycol (Miralax) 17 gm PO BID [facility] Last Admin: 09/24/17 18:45 Dose: 17 gm Sertraline HCl (Zoloft) 50 mg PO DAILY [facility] Last Admin: 09/24/17 10:07 Dose: 50 mg Tamsulosin HCl (Flomax) 0.4 mg PO DAILY [facility] Last Admin: 09/24/17 10:07 Dose: 0.4 mg - Labs Labs: 09/24/17 05:20 09/24/17 05:20 PT 22.0 SECONDS (9.4-12.5) H 09/24/17 05:20 INR 1.97 (0.93-1.08) H 09/24/17 05:20 APTT 54.5 Seconds (25.1-36.5) H 09/22/17 18:38 Attending/Attestation - Attestation I have personally seen and examined this patient.: Yes I have fully participated in the care of the patient.: Yes I have reviewed all pertinent clinical information, including history, physical exam and plan: Yes Notes (Text): this patient was seen and evaluated earlier. this is an addendum to this he progress report dictated by Estephania Smith APN. significant bowel movements.. He will increase the dose of MiraLAX Paroxysmal A. fib on Coumadin Significant anemia status post transfusion Will follow-up the INR if it is improved we'll consider upper GI endoscopy in view of the significant anemia to rule out any GI source of blood loss rule out ulceration neoplasia. 09/24/17 22:53
[2017-09-25] MEDS: Pantoprazole 20 mg EC Tab PO SCH (06:20)
[2017-09-25 06:28] LABS: BASO # 0.02 K/mm3 (0.0-2.0); BASO % 0.4 % (0.0-3.0); EOS # 0.2 (0.0-0.7); EOS % 4.7 % (1.5-5.0); GRAN # 2.52 (1.4-6.5); GRAN % 51.8 % (50.0-68.0); HEMATOCRIT 31.1 % (42.0-52.0); LYMPH # 1.8 (1.2-3.4); LYMPH % 37.4 % (22.0-35.0); MEAN CELL VOLUME 73.9 fl (80.0-105.0); MEAN CORPUSCULAR HEMOGLOBIN 23.3 pg (25.0-35.0); MEAN CORPUSCULAR HGB CONC 31.5 g/dl (31.0-37.0); MEAN PLATELET VOLUME 9.1 fl (7.0-11.0); MONO # 0.3 (0.1-0.6); MONO % 5.7 % (1.0-6.0); RED CELL DISTRIBUTION WIDTH 21.8 % (11.5-14.5); WHITE BLOOD COUNT 4.9 10^3/ul (4.5-11.0)
[2017-09-25 06:44] LABS: INR 1.42 (0.93-1.08)
[2017-09-25 07:29] LABS: BLOOD UREA NITROGEN 10 mg/dL (7-21); CALCIUM 8.8 mg/dL (8.4-10.5); CARBON DIOXIDE 28 mmol/L (21-33); CHLORIDE 104 mmol/L (98-107); GFR AFRICAN-AMERICAN > 60; GLUCOSE,RANDOM 102 mg/dL (70-110); POTASSIUM 3.9 mmol/L (3.6-5.0); SODIUM 140 mmol/L (132-148)
[2017-09-25] MEDS: POLYETHYLENE GLYCOL 3350 17 GM/Dose PACKET PO SCH ×2 (09:33→17:23)
--- NOTE | 2017-09-25 12:47 | CP.PCM.PN ---
Subjective - Date & Time of Evaluation Date of Evaluation: 09/25/17 Time of Evaluation: 09:00 - Subjective Subjective: PGY-2 Neurology progress note Patient seen and examined at bedside. No acute distress, he is sleeping comfortably. He does not have any complaints at this time. He denies chest pain , sob, headache, dizziness. Objective - Vital Signs/Intake and Output Vital Signs (last 24 hours): Temp Pulse Resp BP Pulse Ox 98.6 F 72 18 108/59 L 95 09/25/17 06:00 09/25/17 06:00 09/25/17 06:00 09/25/17 09:32 09/25/17 06:00 Intake and Output: 09/25/17 09/25/17 06:59 18:59 Intake Total 400 Balance 400 - Medications Medications: Current Medications Amitriptyline HCl (Elavil) 75 mg PO HS [facility] Last Admin: 09/24/17 21:18 Dose: 75 mg Aspirin (Aspirin Chewable) 81 mg PO DAILY [facility] Last Admin: 09/25/17 09:32 Dose: Not Given Carvedilol (Coreg) 3.125 mg PO BID [facility] Last Admin: 09/25/17 09:32 Dose: Not Given Gabapentin (Neurontin) 300 mg PO TID [facility] PRN Reason: Protocol Last Admin: 09/25/17 09:34 Dose: 300 mg Cefazolin Sodium (Ancef 1gm In Ns) 1 gm in 100 mls @ 100 mls/hr IVPB Q8 [facility] PRN Reason: Protocol Sodium Chloride (Sodium Chloride 0.9%) 1,000 mls @ 75 mls/hr IV .[id number] [facility] Stop: 09/25/17 19:31 Lisinopril (Zestril) 2.5 mg PO DAILY [facility] Last Admin: 09/25/17 09:33 Dose: Not Given Pantoprazole Sodium (Protonix Ec Tab) 20 mg PO 0600 [facility] Last Admin: 09/25/17 06:20 Dose: Not Given Polyethylene Glycol (Miralax) 17 gm PO BID [facility] Last Admin: 09/25/17 09:33 Dose: Not Given Sertraline HCl (Zoloft) 50 mg PO DAILY [facility] Last Admin: 09/25/17 09:34 Dose: 50 mg Tamsulosin HCl (Flomax) 0.4 mg PO DAILY [facility] Last Admin: 09/25/17 09:35 Dose: 0.4 mg - Labs Labs: 09/25/17 05:20 09/25/17 05:20 PT 15.7 SECONDS (9.4-12.5) H 09/25/17 05:20 INR 1.42 (0.93-1.08) H 09/25/17 05:20 APTT 54.5 Seconds (25.1-36.5) H 09/22/17 18:38 - Constitutional Appears: No Acute Distress - Head Exam Head Exam: ATRAUMATIC, NORMAL INSPECTION, NORMOCEPHALIC - Eye Exam Eye Exam: EOMI, Normal appearance - ENT Exam ENT Exam: Mucous Membranes Moist - Respiratory Exam Respiratory Exam: Clear to Ausculation Bilateral, NORMAL BREATHING PATTERN. absent: Rhonchi, Wheezes, Respiratory Distress - Cardiovascular Exam Cardiovascular Exam: REGULAR RHYTHM. absent: Tachycardia, Murmur - GI/Abdominal Exam GI & Abdominal Exam: Soft, Normal Bowel Sounds. absent: Tenderness - Neurological Exam Neurological Exam: Alert, Awake, CN II-XII Intact. absent: Oriented x3 Neuro motor strength exam: Left Upper Extremity: 4, Right Upper Extremity: 5, Left Lower Extremity: 4, Right Lower Extremity: 5 - Skin Skin Exam: Dry, Intact, Normal Color, Warm Assessment and Plan - Assessment and Plan (Free Text) Assessment: 72 yo male with PMH of CAD s/p CABG, CVA with left hemiparesis, low back pain presented with frequent falls and urinary incontinence, found to have compression fracture of L1. 1. UTI 2. H/o CVA with left hemiparesis 3. 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
[2017-09-25] MEDS: ceFAZolin 1 gm in NS 1 GM/100 ML BAG IVPB SCH ×2 (13:21→21:22)
[2017-09-25] MEDS ORDERED: Sodium Chloride 0.9% 1,000 ML IV SCH (13:30)
[2017-09-25] MEDS ORDERED: Propofol 10 mg/ml Inj (20 ML) ONE (13:58)
--- NOTE | 2017-09-25 19:16 | CP.PCM.PN ---
Subjective - Date & Time of Evaluation Date of Evaluation: 09/25/17 Time of Evaluation: 10:35 - Subjective Subjective: Comfortable, no fevers, still with back pain but a little less, not in distress. Objective - Vital Signs/Intake and Output Vital Signs (last 24 hours): Temp Pulse Resp BP Pulse Ox 98 F 64 19 114/65 96 09/24/17 16:00 09/24/17 18:44 09/24/17 16:00 09/24/17 18:44 09/24/17 16:00 Intake and Output: 09/25/17 09/25/17 06:59 18:59 Intake Total 400 Balance 400 - Medications Medications: Current Medications Amitriptyline HCl (Elavil) 75 mg PO HS [facility] Last Admin: 09/24/17 21:18 Dose: 75 mg Aspirin (Aspirin Chewable) 81 mg PO DAILY [facility] Last Admin: 09/24/17 10:07 Dose: 81 mg Carvedilol (Coreg) 3.125 mg PO BID [facility] Last Admin: 09/24/17 18:44 Dose: 3.125 mg Gabapentin (Neurontin) 300 mg PO TID [facility] PRN Reason: Protocol Last Admin: 09/24/17 18:44 Dose: 300 mg Cefepime HCl (Maxipime 1gm) 1 gm in 100 mls @ 100 mls/hr IVPB Q12 [facility] PRN Reason: Protocol Last Admin: 09/24/17 21:17 Dose: 100 mls/hr Lisinopril (Zestril) 2.5 mg PO DAILY [facility] Last Admin: 09/24/17 10:06 Dose: 2.5 mg Pantoprazole Sodium (Protonix Ec Tab) 20 mg PO 0600 [facility] Last Admin: 09/25/17 06:20 Dose: Not Given Polyethylene Glycol (Miralax) 17 gm PO BID [facility] Last Admin: 09/24/17 18:45 Dose: 17 gm Sertraline HCl (Zoloft) 50 mg PO DAILY [facility] Last Admin: 09/24/17 10:07 Dose: 50 mg Tamsulosin HCl (Flomax) 0.4 mg PO DAILY [facility] Last Admin: 09/24/17 10:07 Dose: 0.4 mg - Labs Labs: 09/25/17 05:20 09/24/17 05:20 PT 15.7 SECONDS (9.4-12.5) H 09/25/17 05:20 INR 1.42 (0.93-1.08) H 09/25/17 05:20 APTT 54.5 Seconds (25.1-36.5) H 09/22/17 18:38 - Constitutional Appears: Non-toxic - Head Exam Head Exam: NORMAL INSPECTION - ENT Exam ENT Exam: Mucous Membranes Moist - Neck Exam Neck Exam: absent: Meningismus - Respiratory Exam Respiratory Exam: Decreased Breath Sounds - Cardiovascular Exam Cardiovascular Exam: +S1, +S2 - GI/Abdominal Exam GI & Abdominal Exam: Soft. absent: Tenderness Assessment and Plan - Assessment and Plan (Free Text) Plan: Assessment urinary tract infection with E. coli in this patient with urinary incontinence L1 compression fracture CAD S/P CABG CVA with left sided hemiparesis HTN lumbar radiculopathy GERD S/P hernia repair Plan switched to Cefazolin and can be switched to PO Keflex when ready for discharge for another 7-10 days; blood cx are negative as per Neurosurgery, conservative therapy for the compression fracture will continue to monitor clinically discussed with Dr. Ramos
--- NOTE | 2017-09-25 22:47 | PN ---
DATE: 09/24/2017 SUBJECTIVE: The patient was seen in room 367, bed #1 this evening. He is awake and alert, having been transfused packed red cells. MRI of the head and lumbar spine were done and were scheduled. Neurology note is appreciated. The patient looks markedly improved with some gentle IV hydration and IV antibiotics. Daughter is at the bedside and pleased with his overall recovery in the last short [address] scan of the abdomen was done showing large amount of stools. The patient had bowel movement today. ID note appreciated. PLAN: Continue antibiotics. Follow fluid status, physical therapy, and Neurology input as well. Kiko Ramos MD
[2017-09-26] MEDS: ceFAZolin 1 gm in NS 1 GM/100 ML BAG IVPB SCH ×3 (05:25→21:45)
[2017-09-26] MEDS: Pantoprazole 20 mg EC Tab PO SCH (05:26)
[2017-09-26 06:08] LABS: INR 1.35 (0.93-1.08)
[2017-09-26] MEDS: POLYETHYLENE GLYCOL 3350 17 GM/Dose PACKET PO SCH ×2 (09:48→17:38)
--- NOTE | 2017-09-26 21:47 | PN ---
DATE: 09/26/2017 SUBJECTIVE: Patient is seen early this morning in room 370, bed 1. No fevers, no chills. PHYSICAL EXAMINATION: VITAL SIGNS: Temperature is 98.2, blood pressure is 109/70, respiratory rate 18, , heart rate of 75. HEENT: Unremarkable. NECK: Supple. LUNGS: Decreased breath sounds. HEART: Normal S1, S2. ABDOMEN: Soft, nontender. LABORATORY DATA: Laboratory examination reveals a white count of 4.9, hemoglobin 9, platelets of 185, BUN of 10, creatinine of 0.9. Urinalysis is noted with wbc more than 20. Microbiology is noted with E. coli in the urine. Sensitivity is reviewed. It is sensitive to ceftriaxone and Bactrim. It is negative ESBL. Sensitive to cefepime. It is resistant to Cipro. ASSESSMENT AND PLAN: A 72-year-old male seen early this morning in room ____, bed 1 with Escherichia coli urinary tract infection, urinary incontinence with L1 compression fracture, status post coronary artery bypass graft, coronary artery disease, cerebrovascular accident, left-sided hemiparesis. Currently on cefazolin, may be switched to p.o. Keflex upon discharge to complete 7 to 10 days of therapy. Sanya Baker MD
--- NOTE | 2017-09-26 23:35 | PN ---
DATE: 09/26/2017 SUBJECTIVE: The patient seen this Thursday morning in room 367, bed 1. He is sitting out of bed in the chair. Awake, alert, looks markedly improved since initial presentation. Back pain radiating around the left side has seems to improve. PHYSICAL EXAMINATION: LUNGS: Showed good aeration. HEART: Regular, not tachycardic. ABDOMEN: Soft, nontender. He had several bowel movements over the last few days and feels better. LABORATORY DATA: Labs show improvement. His INR is back down into below therapeutic range. IMPRESSION: The way I see the scenario unraveling at home prior to admission is that the patient must have fallen a few days ago causing the acute fracture of the L1 lumbar vertebrae. Pain then related to decreased p.o. intake, decrease intake of fluids, constipation and then urinary tract infection. These all with the old stroke and age. I spoke with the patient's daughter Lily, telephone number [phone]. We are hoping that the patient will be ready to go to a [place] re[place] today [place] [facility] where the daughter lives, in fact it is only a few blocks from her house walking distance, but the patient had refused. I went back after talking to the daughter. I spoke to the patient at length about the importance of rehab, importance of continuing close medical followup and being near his daughter for her convenience that not making her travel to [place] or [place]. The patient seemed to understand and agreed. Unfortunately, transportation had already been canceled; therefore, we will rearrange for the next possible time. Kiko Ramos MD [facility]
--- NOTE | 2017-09-27 | CP.PCM.PN ---
Subjective - Date & Time of Evaluation Date of Evaluation: 09/26/17 Time of Evaluation: 11:45 - Subjective Subjective: Feeling much better tolerating the diet Objective - Vital Signs/Intake and Output Vital Signs (last 24 hours): Temp Pulse Resp BP Pulse Ox 98.2 F 75 19 109/70 96 09/26/17 17:01 09/26/17 17:37 09/26/17 17:01 09/26/17 17:37 09/26/17 17:01 Intake and Output: 09/26/17 09/27/17 18:59 06:59 Intake Total 895 Output Total 600 Balance 295 - Medications Medications: Current Medications Amitriptyline HCl (Elavil) 75 mg PO HS [facility] Last Admin: 09/26/17 21:46 Dose: 75 mg Aspirin (Aspirin Chewable) 81 mg PO DAILY [facility] Last Admin: 09/26/17 09:48 Dose: 81 mg Carvedilol (Coreg) 3.125 mg PO BID [facility] Last Admin: 09/26/17 17:37 Dose: 3.125 mg Cephalexin Monohydrate (Keflex) 500 mg PO Q6 [facility] PRN Reason: Protocol Stop: 10/01/17 12:01 Last Admin: 09/26/17 17:37 Dose: 500 mg Gabapentin (Neurontin) 300 mg PO TID [facility] PRN Reason: Protocol Last Admin: 09/26/17 17:37 Dose: 300 mg Cefazolin Sodium (Ancef 1gm In Ns) 1 gm in 100 mls @ 100 mls/hr IVPB Q8 [facility] PRN Reason: Protocol Last Admin: 09/26/17 21:45 Dose: 100 mls/hr Lisinopril (Zestril) 2.5 mg PO DAILY [facility] Last Admin: 09/26/17 09:47 Dose: 2.5 mg Pantoprazole Sodium (Protonix Ec Tab) 20 mg PO 0600 [facility] Last Admin: 09/26/17 05:26 Dose: 20 mg Polyethylene Glycol (Miralax) 17 gm PO BID [facility] Last Admin: 09/26/17 17:38 Dose: 17 gm Sertraline HCl (Zoloft) 50 mg PO DAILY [facility] Last Admin: 09/26/17 09:48 Dose: 50 mg Tamsulosin HCl (Flomax) 0.4 mg PO DAILY [facility] Last Admin: 09/26/17 09:47 Dose: 0.4 mg Warfarin Sodium (Coumadin) 3 mg PO 1800 [facility] PRN Reason: Protocol Last Admin: 09/26/17 17:38 Dose: 3 mg - Labs Labs: 09/25/17 05:20 09/25/17 05:20 PT 14.9 SECONDS (9.4-12.5) H 09/26/17 05:00 INR 1.35 (0.93-1.08) H 09/26/17 05:00 APTT 54.5 Seconds (25.1-36.5) H 09/22/17 18:38 - Head Exam Head Exam: ATRAUMATIC, NORMOCEPHALIC - Eye Exam Eye Exam: EOMI, PERRL - ENT Exam ENT Exam: Mucous Membranes Moist, Normal Oropharynx - Neck Exam Neck Exam: Normal Inspection, Tenderness. absent: Lymphadenopathy - Respiratory Exam Respiratory Exam: NORMAL BREATHING PATTERN. absent: Rales, Rhonchi - Cardiovascular Exam Cardiovascular Exam: +S1, +S2. absent: JVD - GI/Abdominal Exam GI & Abdominal Exam: Soft, Tenderness. absent: Mass Additional comments: Left-sided abdomen tenderness present which is been chronic for years no change - Extremities Exam Extremities Exam: Tenderness. absent: Calf Tenderness, Pedal Edema - Neurological Exam Neurological Exam: Alert, Awake, Oriented x3 Assessment and Plan - Assessment and Plan (Free Text) Assessment: This patient is to start her back on Coumadin. History of A. fib status post CVA has severe anemia status post transfusion hemoglobin stable EGD revealed a significantly erythematous patch near the fundus area biopsies taken pathology still pending His short course of PPI can be switched over to H2 blockers electively. Follow-up with a hemoglobin hematocrit elective colonoscopic evaluation unless the hemoglobin tend to show downward trend Complaint antibiotic courses for UTI as per ID
[2017-09-27] MEDS: Pantoprazole 20 mg EC Tab PO SCH (05:27)
[2017-09-27] MEDS: ceFAZolin 1 gm in NS 1 GM/100 ML BAG IVPB SCH (05:28)
[2017-09-27 07:29] LABS: INR 1.34 (0.93-1.08)
[2017-09-27] MEDS: POLYETHYLENE GLYCOL 3350 17 GM/Dose PACKET PO SCH (09:31)
[2017-09-27 10:46] VITALS: BP 107/60; PULSE 76; RESP 20; TEMP 97.8; O2SAT 94
--- NOTE | 2017-09-27 18:19 | PN ---
DATE: 09/27/2017 SUBJECTIVE: The patient is in bed, in no acute distress, nontoxic. PHYSICAL EXAMINATION VITAL SIGNS: On exam, temperature is 97, blood pressure is 107/60, respiratory rate of 20. HEENT: Examination is unremarkable. NECK: Supple. LUNGS: Have decreased breath sounds. HEART: Normal S1, S2. ABDOMEN: Examination is soft, nontender. LABORATORY DATA: Examination reveals a white count of 4.9, hemoglobin of 9, platelets of 185. Chemistries reveals a BUN of 10, creatinine of 0.9. Urinalysis noted. Microbiology reveals an E. coli in the urine, pansensitive. ASSESSMENT AND PLAN: This is a 72-year-old male with Escherichia coli urinary tract infection, urinary incontinence with L1 compression fracture, status post coronary artery bypass graft, coronary artery disease, cerebrovascular accident, left-sided hemiparesis, now on p.o. Keflex and we will discontinue the cefazolin and Dr. Trve King's progress note from yesterday is reviewed and appreciated. Dr. Kiko Ramos note is reviewed from yesterday. Sanya Baker MD
--- NOTE | 2017-09-28 05:50 | DS ---
HISTORY OF PRESENT ILLNESS: This is a 72-year-old man, I have known for many years, who came to the office because of generalized weakness and fall at home. He was somewhat disheveled, weak, lethargic, and difficulty leaving the office and although, I took some convincing, he finally agreed to come to the Emergency Room. In the ER, his white count was elevated. He was found to have urinary tract infection, treated with IV fluids, antibiotics, and did amazingly well. PAST MEDICAL HISTORY: Significant for hypertension and stroke, suspected atrial fibrillation by history and because of multiple strokes approximately 7 before I met him plus a hospitalization for splenic infarct, he is therefore on long-term anticoagulants. COURSE OF HOSPITAL STAY: The patient was treated with antibiotics and IV fluids as noted above. He is followed by Neurology treasury management sales consultant as well as Infectious Disease. He improved clinically and I spoke with his daughter on several occasions. She lives in [place], and there is a subacute rehab facility just around corner from her. I spoke with the patient at length in the home to care for his parrot, but I explained that this is important for his daughter, Lily if he be near her to make it easy for her to come and visit him during his subacute rehab and this will be the short-term process, we are not looking for long time commitment and it is not a residential that he is going to. The patient agreed. Unfortunately, the process had caused a delay in his discharge which was originally set for Thursday. So, he was ready to leave today, 09/27/2017. FINAL DISCHARGE DIAGNOSES: 1. Urinary tract infection. 2. Sepsis. 3. Coagulopathy related to Coumadin in the setting of infection. 4. Dehydration. 5. History of atrial fibrillation. 6. Multiple cerebrovascular accident with left hemiparesis and spasticity. 7. Status post splenic infarct. 8. Status post multiple cerebrovascular accidents in the past. Kiko Ramos MD MTDChucho
--- NOTE | 2017-09-28 17:16 | PQF SEPSIS ---
09/28/17 Dr. Bernardo Ramos, You document "sepsis" as the second diagnosis on your discharge summary. This is not documented elsewhere in the record. Please clarify whether patient had a systemic sepsis. If sepsis was confirmed, was this present on admission? Thank you. Clarification of your documentation is requested to better reflect the severity of illness and intensity of treatment of your patient. Indicators present [] Temp < 96.8 or > 100.4 [] WBC count > 12,000/mm3 or <000/mm3 or 10% immature neutrophils [] Heart Rate > 90 [] Respiratory Rate > 20 [] Fever or hypothermia [] Chills [] Positive blood cultures [] Hypotension [] Metabolic acidosis (Elevated lactate level, anion gap or reduced blood pH) [] Acute confusion /Altered Mental Status [] Shock [] Other: [] Location in the medical record that reflects the above clinical findings: [] Treatment Provided: [] PHYSICIAN'S RESPONSE Based on your medical judgment of the clinical indicators outlined above, are you treating this patient for a known or suspected: [] Sepsis / Septicemia Please specify organism if known [] [] SIRS (Systemic Inflammatory Response Syndrome) [] Severe Sepsis (Sepsis with Associated Organ Dysfunction) [] Fever of Unknown Origin [x] Other, please indicate: [] Clinically sick, dry, toxic, AMS with e-coli UTI. Responded to IV fluids and antibiotics. But cannot check enough boxes to support the billing diagnosis of "Sepsis" [] If Unable to Determine, please check the box, sign and date. Present On Admission (POA) Indicator: [] Present at the time of admission [x] Not present at the time of admission [] Clinically Undetermined In responding to this query, please exercise your independent professional judgment. The fact that a question is asked does not imply that any particular answer is desired or expected. Thank you for your clarification on this documentation. If you have any questions please call:[ ] * Thank you, [ ] geosciences associate professor [facility]
== END 2017-09-27 16:51 | DRG 690 ==
LOC: ED 17:53 → ERH 21:22 → 3RNO 22:21 → 3RSO 09-26 11:52
PROVIDERS: ADMIT Internal Medicine; ATTEND Internal Medicine
PROC: 30233N1 Transfusion of Nonautologous Red Blood Cells into Peripheral Vein, Percutaneous Approach (ICD-10-PCS; principal; 2017-09-23)
DX: N39.0 Urinary tract infection, site not specified (principal); G93.89 Other specified disorders of brain; I48.0 Paroxysmal atrial fibrillation; I69.354 Hemiplegia and hemiparesis following cerebral infarction affecting left non-dominant side; M48.56XA Collapsed vertebra, not elsewhere classified, lumbar region, initial encounter for fracture; E86.0 Dehydration; B96.20 Unspecified Escherichia coli [E. coli] as the cause of diseases classified elsewhere; I67.2 Cerebral atherosclerosis; W19.XXXA Unspecified fall, initial encounter; F32.89 Other specified depressive episodes; H40.9 Unspecified glaucoma; I10 Essential (primary) hypertension; I25.10 Atherosclerotic heart disease of native coronary artery without angina pectoris; T45.515A Adverse effect of anticoagulants, initial encounter; K21.9 Gastro-esophageal reflux disease without esophagitis; K29.70 Gastritis, unspecified, without bleeding; K59.00 Constipation, unspecified; K80.20 Calculus of gallbladder without cholecystitis without obstruction; M54.16 Radiculopathy, lumbar region; R29.6 Repeated falls; R32 Unspecified urinary incontinence; Y92.009 Unspecified place in unspecified non-institutional (private) residence as the place of occurrence of the external cause; Z86.010 Personal history of colon polyps; Z87.11 Personal history of peptic ulcer disease; Z87.891 Personal history of nicotine dependence; Z90.49 Acquired absence of other specified parts of digestive tract; Z91.81 History of falling; Z95.1 Presence of aortocoronary bypass graft; Z95.5 Presence of coronary angioplasty implant and graft; T14.8XXA Other injury of unspecified body region, initial encounter; R40.2412 Glasgow coma scale score 13-15, at arrival to emergency department; F41.9 Anxiety disorder, unspecified; G47.00 Insomnia, unspecified; R79.1 Abnormal coagulation profile

== ENCOUNTER 2017-12-17 10:58 | Emergency (ER) | payer MEDICARE, OTHER ==
[2017-12-17 11:06] VITALS: BMI 26.7
[2017-12-17 11:14] VITALS: BP 134/69; O2SAT 99
[2017-12-17 11:22] VITALS: PULSE 62; RESP 17; TEMP 96.1
--- NOTE | 2017-12-17 11:32 | ED PDOC ---
Arrival/HPI - General Chief Complaint: Altered Mental Status Time Seen by Provider: 12/17/17 11:11 Historian: Patient, Family (Daughter) - History of Present Illness Narrative History of Present Illness (Text): 12/17/17 11:30 A 72 year old male, whose past medical history includes CVA with residual left sided weakness, brought into the emergency department by EMS for evaluation. Daughter reports patients regular home stager nurse is on vacation and his visiting nurse called 911 after patient did not answer the door. Daughter reports she is able to monitor the patient daily through cameras. She reports patient went to bed very late yesterday and was sleeping when visiting home stager nurse arrived this morning. She denies visualizing any falls or trauma today. Patient denies any fever, chills, nausea, vomiting, abdominal pain, chest pain, shortness of breath or any other complaints. PMD: Dr. Ramos Time/Duration: Prior to Arrival Context: Home Past Medical History - Provider Review Nursing Documentation Reviewed: Yes - Tetanus Immunization Tetanus Immunization: Unknown - Cardiac Hx Cardiac Disorders: Yes Hx Hypertension: Yes - Pulmonary Hx Respiratory Disorders: Yes Other/Comment: H/O OF SMOKING CIGARETTES - Neurological HX Cerebrovascular Accident: Yes - HEENT Hx HEENT Disorder: Yes (pt uses reading glass) Hx Glaucoma: Yes - Hematological/Oncological Hx Blood Transfusions: No Hx Blood Transfusion Reaction: No - Integumentary Other/Comment: POST FALL SKIN ABRASION TO RIGHT UPPER INNER LATERAL .01-11-16 - Musculoskeletal/Rheumatological Hx Musculoskeletal Disorders: Yes (LUMBAR RADICULOPATHY) Hx Falls: Yes (RECENT 01-11-16) Hx Unsteady Gait: Yes (CANE) - Gastrointestinal Hx Gastroesophageal Reflux: Yes - Genitourinary/Gynecological Hx Genitourinary Disorders: Yes Hx Incontinence: Yes - Psychiatric Hx Psychophysiologic Disorder: Yes Hx Anxiety: Yes Hx Depression: Yes Hx Emotional Abuse: No Hx Physical Abuse: No Hx Substance Use: No Other/Comment: INSOMNIA - Surgical History Hx Appendectomy: Yes Hx Open Heart Surgery: Yes Other/Comment: OPN HEART SURGERY,HERNIA REPAIR X 2 - Anesthesia Hx Anesthesia Reactions: No Hx Malignant Hyperthermia: No - Suicidal Assessment Feels Threatened In Home Enviroment: No Family/Social History - Physician Review Nursing Documentation Reviewed: Yes Family/Social History: No Known Family HX Smoking Status: Former Smoker Hx Alcohol Use: No Hx Substance Use: No Hx Substance Use Treatment: No Allergies/Home Meds Allergies/Adverse Reactions: Allergies No Known Allergies Allergy (Verified 01/16/16 21:02) Home Medications: Home Meds Medication Instructions Recorded Confirmed Polyethylene Glycol 3350 [Miralax] 17 gm PO HS 01/16/16 09/22/17 Review of Systems - Physician Review All systems were reviewed & negative as marked: Yes - Review of Systems Constitutional: Normal. absent: Fevers, Night Sweats Respiratory: absent: SOB Cardiovascular: absent: Chest Pain Gastrointestinal: absent: Abdominal Pain, Nausea, Vomiting Physical Exam Vital Signs Reviewed: Yes Vital Signs Temp Pulse Resp BP Pulse Ox 12/17/17 11:17 96.1 F L 62 17 134/69 99 12/17/17 11:10 65 16 134/69 99 Temperature: Afebrile Blood Pressure: Normal Pulse: Regular Respiratory Rate: Normal Appearance: Positive for: Well-Appearing, Non-Toxic, Comfortable, Other (No sign of injuries, Well hydrated) Pain Distress: None Mental Status: Positive for: Alert and Oriented X 3 Finger Stick Blood Glucose: 88 - Systems Exam Head: Present: Atraumatic, Normocephalic Pupils: Present: PERRL Extroacular Muscles: Present: EOMI Conjunctiva: Present: Normal Mouth: Present: Moist Mucous Membranes Neck: Present: Normal Range of Motion Respiratory/Chest: Present: Clear to Auscultation, Good Air Exchange. No: Respiratory Distress, Accessory Muscle Use Cardiovascular: Present: Regular Rate and Rhythm, Normal S1, S2. No: Murmurs Abdomen: Present: Normal Bowel Sounds. No: Tenderness, Distention, Peritoneal Signs Upper Extremity: Present: NORMAL PULSES, Other (Left sided weakness from prior stroke). No: Cyanosis, Edema Lower Extremity: Present: NORMAL PULSES, Other (Left sided weakness from prior stroke). No: Edema, Normal ROM (chronic decrease ROM in LLE) Neurological: Present: GCS=15, CN II-XII Intact, Speech Normal, Other (No acute neurological deficits) Skin: Present: Warm, Dry, Normal Color. No: Rashes Psychiatric: Present: Alert, Oriented x 3, Normal Insight, Normal Concentration Medical Decision Making ED Course and Treatment: 12/17/17 11:30 Impression: A 72 year old male brought in for evaluation Progress Notes: Both patient and daughter deny any complaints. Patient is alert and oriented times 3. Daughter requesting to be discharged home. Patient is stable for discharge. Disposition/Present on Arrival - Present on Arrival Any Indicators Present on Arrival: No History of DVT/PE: No History of Uncontrolled Diabetes: No Urinary Catheter: No History of Decub. Ulcer: No History Surgical Site Infection Following: CABG - Mediastinitis - Disposition Have Diagnosis and Disposition been Completed?: Yes Diagnosis: Encounter for medical screening examination Disposition: HOME/ ROUTINE Disposition Time: 11:35 Patient Plan: Discharge Patient Problems: Current Active Problems Problem Status Onset Encounter for medical screening examination Acute Condition: STABLE Referrals: [facility], [Non-Staff] - Follow up with primary Forms: [employer] (Swedish)
--- NOTE | 2017-12-17 18:53 | CARD ---
APPROVED REPORT EKG Measurement Heart [id number] <Conclusion> Sinus rhythm with 1st degree AV block Left axis deviation Incomplete right bundle branch block Tee-Septal infarct, age undetermined Abnormal ECG
== END 2017-12-17 11:46 | disposition home or self-care (01) ==
LOC: ED 10:58
DX: Z04.8 Encounter for examination and observation for other specified reasons (principal); I10 Essential (primary) hypertension; Z86.73 Personal history of transient ischemic attack (TIA), and cerebral infarction without residual deficits; Z87.891 Personal history of nicotine dependence